=== PATIENT | male | born 1945 | race Caucasian/White ===

== ENCOUNTER 2022-08-06 09:41 | Emergency (ER) | payer OTHER ==
[~2022-08-06] VITALS: Ht 185.4 cm; Wt 95.0 kg
[2022-08-06] MEDS ORDERED: SODIUM CHLORIDE 0.9% 1,000 ML IV ONE ×2 (09:45)
[2022-08-06 11:43] LABS: Albumin 3.2 g/dL (3.4-5.0); Basophils # (auto) 0.1 10 ^3/uL (0-0.2); Basophils % (auto) 0.6 % (0.0-2.0); Bilirubin, Total 0.5 mg/dL (0.2-1.0); Calcium 8.8 mg/dL (8.5-10.1); Eosinophils # (auto) 0.2 10 ^3/uL (0-0.8); Eosinophils % (auto) 2.3 % (0.0-7.0); Hematocrit 43.5 % (41.0-53.0); Hemoglobin 14.4 g/dL (13.5-17.5); INR 1.05 (0.9-1.15); Lymphocytes # (auto) 1.7 10 ^3/uL (0.4-5.4); Lymphocytes % (auto) 18.8 % (10.0-50.0); Mean Corpuscular Hemoglobin 29.7 pg (28.0-32.0); Mean Corpuscular Volume 90.1 fL (80.0-100.0); Monocytes # (auto) 0.5 10 ^3/uL (0-1.3); Monocytes % (auto) 5.5 % (0.0-12.0); Neutrophils # (auto) 6.7 10 ^3/uL (1.6-8.6); Neutrophils % (auto) 72.8 % (37.0-80.0); Nucleated Red Blood Cells % 0.1 %; Partial Thromboplastin Time 27.6 sec (24.6-33.4); Potassium 4.5 mmol/L (3.5-5.1); Red Blood Cells 4.83 10^6/uL (4.5-5.90); Red Cell Distribution Width 13.6 % (11.8-14.3); Total Protein 6.4 g/dL (6.4-8.2); White Blood Cell 9.2 10^3/uL (4.4-10.8)
[2022-08-06 11:49] LABS: BUN/Creatinine Ratio 18.9
[2022-08-06 12:00] LABS: Urine Bacteria FEW /hpf (None Seen); Urine Blood Negative /uL (Negative); Urine Hyaline Cast FEW /lpf (0 - 2); Urine Mucus FEW (None Seen); Urine WBC 2 /hpf (0 - 3)
[2022-08-06 12:11] LABS: Alcohol, Urine < 3.0 mg/dL (0-10); Amphetamine Screen, Urine NEGATIVE (NEGATIVE); Barbiturate Scree,Urine NEGATIVE (NEGATIVE); Benzodiazephine Screen, Urine NEGATIVE (NEGATIVE); Cannabinoid Screen, Urine NEGATIVE (NEGATIVE); Cocaine Screen, Urine NEGATIVE (NEGATIVE); Opiate Scree,Urine NEGATIVE (NEGATIVE); Phencyclidine Screen, Urine NEGATIVE (NEGATIVE)
[2022-08-06 12:54] VITALS: BP 123/72
== END 2022-08-06 13:11 | disposition home or self-care (01) ==
LOC: EDBD 09:41 → ER 09:41
DX: E86.0 Dehydration (principal); I10 Essential (primary) hypertension
CPT/HCPCS: 36415; 71045; 80053; 80307; 81001; 83605; 83880; 84484; 85025; 85610; 85730; 87040; 93005; 96360; 96361; 99285; J7030